=== PATIENT | female | born 1975 | race Caucasian/White ===

== ENCOUNTER → 2017-02-27 | Outpatient (CLI) | payer OTHER ==
[2015-06-25 12:50] VITALS: BP 154/99
[~2017-02-27] MED LIST: DIFLUCAN200 M1 PO; ERGOCALCIFER50000 IU PO; FLEXERIL 1010 MG/TAB PO; GOOD NEIGHBOR200 M1 PO; NORCO 325 MG-7.1 TA1 PO; ZANTAC150 M1 PO
== END ==
LOC: LAB 14:27 → RAD 14:27
DX: R05 Cough (principal)

== ENCOUNTER → 2017-02-27 | Outpatient (REF) ==
[2015-06-25 12:50] VITALS: BP 154/99
== END ==
LOC: LAB 14:32
DX: Z00.00 Encounter for general adult medical examination without abnormal findings (principal)

== ENCOUNTER → 2017-10-31 | Outpatient (CLI) | payer OTHER ==
[2015-06-25 12:50] VITALS: BP 154/99
== END ==
LOC: RAD 10-30 08:30 → MAMMO 08:08 → RAD 08:30
DX: Z12.31 Encounter for screening mammogram for malignant neoplasm of breast (principal)

== ENCOUNTER → 2018-07-25 | Outpatient (CLI) | payer OTHER ==
[2015-06-25 12:50] VITALS: BP 154/99
== END ==
LOC: RAD 16:52
DX: R93.5 Abnormal findings on diagnostic imaging of other abdominal regions, including retroperitoneum (principal); R10.32 Left lower quadrant pain

== ENCOUNTER → 2018-10-24 | Outpatient (REF) | payer OTHER ==
[2015-06-25 12:50] VITALS: BP 154/99
== END ==
LOC: LAB 16:29
DX: Z00.00 Encounter for general adult medical examination without abnormal findings (principal); E55.9 Vitamin D deficiency, unspecified; K90.89 Other intestinal malabsorption

== ENCOUNTER → 2019-11-19 | Outpatient (CLI) | payer OTHER ==
[2015-06-25 12:50] VITALS: BP 154/99
== END ==
LOC: MAMMO 08:17
DX: Z12.31 Encounter for screening mammogram for malignant neoplasm of breast (principal)

== ENCOUNTER 2020-09-10 09:36 | Emergency (ER) | payer OTHER ==
[2020-09-10 10:25] LABS: HEMATOCRIT 44.2 % (37.0-47.0); HEMOGLOBIN 14.9 g/dL (12.5-16.0); MEAN CELL VOLUME 88 fl (78-100); MEAN CORPUSCULAR HEMOGLOBIN 30 pg (27-31); MEAN CORPUSCULAR HGB CONC 34 g/dL (33-37); MEAN PLATELET VOLUME 11.4 fl (7.4-10.4); MONO # 0.6 (0.20-0.80); NEU # 4.2 (1.40-6.50); PLATELET COUNT 138 K/mm3 (130-400); RED CELL DISTRIBUTION WIDTH 13.6 % (11.5-14.5); WHITE BLOOD COUNT 5.8 K/mm3 (4.8-10.8)
[2020-09-10 10:38] LABS: ALBUMIN 3.9 g/dL (3.5-5.0); POTASSIUM 3.7 mmol/L (3.5-5.1); SODIUM 137 mmol/L (136-145)
[2020-09-10 10:40] LABS: CALCIUM 8.7 mg/dL (8.3-10.5)
[2020-09-10 10:41] LABS: GLUCOSE 104 mg/dL (65-105); TOTAL PROTEIN 7.3 g/dL (6.4-8.3)
[2020-09-10 10:42] LABS: CARBON DIOXIDE 25 mmol/L (22-29)
[2020-09-10 10:43] LABS: TOTAL BILIRUBIN 0.4 mg/dL (0.2-1.2)
[2020-09-10 10:44] LABS: ALCOHOL IN-HOUSE < 10 mg/dL (<10)
[2020-09-10 10:46] LABS: AST-SGOT 35 U/L (5-34)
[2020-09-10 10:47] LABS: ALT/SGPT 45 U/L (0-55)
[2020-09-10 10:56] LABS: D-DIMER 0.77 mg/L FEU (0.15-0.50)
[2020-09-10 11:45] LABS: ERYTHROCYTE SEDIMENTATION RATE 31 mm/hr (0-20)
[2020-09-10 12:04] LABS: URINE APPEARANCE HAZY; URINE BILIRUBIN NEGATIVE (NEGATIVE); URINE BLOOD TRACE (NEGATIVE); URINE COLOR LT YELLOW; URINE GLUCOSE NEGATIVE (NEGATIVE); URINE KETONE NEGATIVE (NEGATIVE); URINE LEUKOCYTE ESTERASE 1+ (NEGATIVE); URINE NITRATE NEGATIVE (NEGATIVE); URINE PROTEIN(semi-quant) TRACE mg/dL (NEGATIVE); URINE UROBILINOGEN NORMAL (NORMAL)
[2020-09-10] MEDS ORDERED: MACROBID 100 M100 MG PO (12:54)
[2020-09-10] MEDS ORDERED: TESSALON PERLE100 M1 PO (12:54)
[2020-09-10 13:35] VITALS: BP 130/87
== END 2020-09-10 13:32 | disposition home or self-care (01) ==
LOC: ED 09:36
PROVIDERS: Physician Assistant
DX: U07.1 COVID-19 (principal); N39.0 Urinary tract infection, site not specified; R55 Syncope and collapse
CPT/HCPCS: J7030; Q9967

== ENCOUNTER 2020-09-14 07:20 | Emergency (ER) | payer OTHER ==
[~2020-09-14] VITALS: Wt 102.2 kg
[~2020-09-14 07:20] MED LIST changes: +MACROBID 100 M100 MG PO; +TESSALON PERLE100 M1 PO
[2020-09-14 08:22] LABS: HEMATOCRIT 42.3 % (37.0-47.0); HEMOGLOBIN 14.1 g/dL (12.5-16.0); LYMPH# 1.2 (1.50-4.00); MEAN CELL VOLUME 87 fl (78-100); MEAN CORPUSCULAR HEMOGLOBIN 29 pg (27-31); MEAN CORPUSCULAR HGB CONC 33 g/dL (33-37); MEAN PLATELET VOLUME 11.3 fl (7.4-10.4); MONO # 0.6 (0.20-0.80); NEU # 5.6 (1.40-6.50); PLATELET COUNT 139 K/mm3 (130-400); RED BLOOD COUNT 4.88 M/mm3 (4.10-5.30); RED CELL DISTRIBUTION WIDTH 13.1 % (11.5-14.5); WHITE BLOOD COUNT 7.4 K/mm3 (4.8-10.8)
[2020-09-14 08:30] LABS: ALBUMIN 3.6 g/dL (3.5-5.0); POTASSIUM 3.1 mmol/L (3.5-5.1); SODIUM 137 mmol/L (136-145)
[2020-09-14 08:31] LABS: CALCIUM 8.4 mg/dL (8.3-10.5)
[2020-09-14 08:32] LABS: GLUCOSE 101 mg/dL (65-105)
[2020-09-14 08:34] LABS: CARBON DIOXIDE 26 mmol/L (22-29); TOTAL BILIRUBIN 0.6 mg/dL (0.2-1.2)
[2020-09-14 08:38] LABS: AST-SGOT 119 U/L (5-34)
[2020-09-14 08:39] LABS: ALT/SGPT 129 U/L (0-55); D-DIMER 0.9 mg/L FEU (0.15-0.50)
[2020-09-14 08:41] LABS: TROPONIN-I < 0.03 ng/mL (<0.030)
[2020-09-14 09:30] LABS: ERYTHROCYTE SEDIMENTATION RATE 63 mm/hr (0-20)
[2020-09-14 10:34] LABS: PH-URINE 5.5 (5.0 - 8.0); URINE APPEARANCE HAZY; URINE BILIRUBIN NEGATIVE (NEGATIVE); URINE BLOOD 250 ery/uL (NEGATIVE); URINE COLOR YELLOW; URINE GLUCOSE NEGATIVE (NEGATIVE); URINE KETONE SMALL (NEGATIVE); URINE LEUKOCYTE ESTERASE NEGATIVE (NEGATIVE); URINE MUCUS PRESENT (NOT PRESENT); URINE NITRATE NEGATIVE (NEGATIVE); URINE PROTEIN(semi-quant) TRACE mg/dL (NEGATIVE); URINE UROBILINOGEN NORMAL (NORMAL)
[2020-09-14] MEDS ORDERED: VITAMIN D310 MC1 (10:48)
[2020-09-14 12:30] VITALS: BP 102/62
== END 2020-09-14 13:19 | disposition short-term general hospital (02) ==
LOC: ED 07:20
PROVIDERS: Physician Assistant
DX: U07.1 COVID-19 (principal); R55 Syncope and collapse; Z32.02 Encounter for pregnancy test, result negative; Z79.2 Long term (current) use of antibiotics; Z79.899 Other long term (current) drug therapy
CPT/HCPCS: J7030

== ENCOUNTER → 2020-10-23 | Outpatient (CLI) | payer OTHER ==
[~2020-10-23] MED LIST changes: +VITAMIN D310 MC1
[2020-10-23 13:04] LABS: BASO # 0.1 (0.02-0.10); EOS # 0.2 (0.04-0.40); EOS % 2.7 % (1.0-5.0); LYMPH# 1.9 (1.50-4.00); MEAN CELL VOLUME 89 fl (78-100); MEAN CORPUSCULAR HEMOGLOBIN 29 pg (27-31); MEAN CORPUSCULAR HGB CONC 33 g/dL (33-37); MEAN PLATELET VOLUME 10.6 fl (7.4-10.4); MONO # 0.8 (0.20-0.80); NEU # 4.2 (1.40-6.50); PLATELET COUNT 247 K/mm3 (130-400); RED BLOOD COUNT 4.85 M/mm3 (4.10-5.30); WHITE BLOOD COUNT 7.2 K/mm3 (4.8-10.8)
[2020-10-23 13:14] LABS: ALBUMIN 3.8 g/dL (3.5-5.0)
[2020-10-23 13:15] LABS: CALCIUM 9.1 mg/dL (8.3-10.5)
[2020-10-23 13:17] LABS: TOTAL PROTEIN 6.4 g/dL (6.4-8.3)
[2020-10-23 13:18] LABS: TOTAL BILIRUBIN 0.5 mg/dL (0.2-1.2)
[2020-10-23 14:15] LABS: ERYTHROCYTE SEDIMENTATION RATE 24 mm/hr (0-20)
== END ==
LOC: LAB 12:32
PROVIDERS: Nurse Practitioner
DX: R60.0 Localized edema (principal)

== ENCOUNTER → 2020-10-27 | Outpatient (CLI) | payer OTHER | LOC: LAB 17:02 | DX: R50.9 Fever, unspecified (principal) ==

== ENCOUNTER → 2020-11-22 | Outpatient (REF) | LOC: LAB 08:48 | DX: Z00.00 Encounter for general adult medical examination without abnormal findings (principal) ==

== ENCOUNTER → 2020-11-22 | Outpatient (CLI) | payer OTHER | LOC: MAMMO 08:45 | DX: Z12.31 Encounter for screening mammogram for malignant neoplasm of breast (principal) ==

== ENCOUNTER 2021-05-09 08:31 | Emergency (ER) | payer OTHER ==
[2021-05-09 09:32] LABS: BASO # 0.06 (0.02-0.10); EOS # 0.12 (0.04-0.40); EOS % 1.8 % (1.0-5.0); HEMATOCRIT 48.9 % (37.0-47.0); HEMOGLOBIN 15.9 g/dL (12.5-16.0); LYMPH# 1.37 (1.50-4.00); MEAN CELL VOLUME 91 fl (78-100); MEAN CORPUSCULAR HEMOGLOBIN 29 pg (27-31); MEAN CORPUSCULAR HGB CONC 33 g/dL (33-37); MEAN PLATELET VOLUME 10.6 fl (7.4-10.4); MONO # 0.38 (0.20-0.80); NEU # 4.77 (1.40-6.50); PLATELET COUNT 253 K/mm3 (130-400); RED CELL DISTRIBUTION WIDTH 13.1 % (11.5-14.5); WHITE BLOOD COUNT 6.7 K/mm3 (4.8-10.8)
[2021-05-09 09:39] LABS: URINE APPEARANCE CLEAR; URINE BILIRUBIN NEGATIVE (NEGATIVE); URINE BLOOD NEGATIVE (NEGATIVE); URINE COLOR YELLOW; URINE GLUCOSE NEGATIVE (NEGATIVE); URINE KETONE NEGATIVE (NEGATIVE); URINE LEUKOCYTE ESTERASE NEGATIVE (NEGATIVE); URINE MUCUS PRESENT (NOT PRESENT); URINE NITRATE NEGATIVE (NEGATIVE); URINE PROTEIN(semi-quant) NEGATIVE (NEGATIVE); URINE UROBILINOGEN NORMAL (NORMAL)
[2021-05-09 09:40] LABS: ALBUMIN 4.3 g/dL (3.5-5.0)
[2021-05-09 09:41] LABS: POTASSIUM 4.3 mmol/L (3.5-5.1)
[2021-05-09 09:42] LABS: CALCIUM 10.3 mg/dL (8.3-10.5)
[2021-05-09 09:43] LABS: TOTAL PROTEIN 8.1 g/dL (6.4-8.3)
[2021-05-09 09:45] LABS: TOTAL BILIRUBIN 0.5 mg/dL (0.2-1.2)
[2021-05-09 11:46] VITALS: BP 116/80
== END 2021-05-09 11:46 | disposition home or self-care (01) ==
LOC: ED 08:31
PROVIDERS: Nurse Practitioner
DX: R10.31 Right lower quadrant pain (principal); E66.9 Obesity, unspecified; J45.909 Unspecified asthma, uncomplicated; Z86.16 Personal history of COVID-19; Z87.442 Personal history of urinary calculi
CPT/HCPCS: Q9967

== ENCOUNTER → 2021-05-20 | Outpatient (CLI) | payer OTHER | LOC: CARDREHAB 05-13 14:45 | DX: G47.33 Obstructive sleep apnea (adult) (pediatric) (principal); G47.8 Other sleep disorders | CPT/HCPCS: G0399 ==

== ENCOUNTER → 2021-09-22 | Outpatient (CLI) | payer OTHER | LOC: RAD 10:57 | DX: M25.561 Pain in right knee (principal) ==

== ENCOUNTER → 2021-12-13 | Outpatient (CLI) | payer OTHER | LOC: MAMMO 09:15 | DX: Z12.31 Encounter for screening mammogram for malignant neoplasm of breast (principal) ==

== ENCOUNTER → 2022-10-03 | Outpatient (CLI) | payer OTHER | LOC: RAD 09:56 | DX: I50.20 Unspecified systolic (congestive) heart failure (principal); I51.89 Other ill-defined heart diseases; I34.0 Nonrheumatic mitral (valve) insufficiency; I37.1 Nonrheumatic pulmonary valve insufficiency ==

== ENCOUNTER → 2022-10-07 | Outpatient (CLI) | payer OTHER ==
[2022-10-07 11:58] LABS: CLUE CELLS NOT OBSERVED (Not Observd)
== END ==
LOC: LAB 11:13
PROVIDERS: Nurse Practitioner
DX: R10.2 Pelvic and perineal pain (principal)
CPT/HCPCS: Q0111

== ENCOUNTER → 2022-11-23 | Outpatient (CLI) | payer OTHER ==
[~2022-11-23] MED LIST changes: +BACTRIM DS TAB1 EACH PO; +CEFDINIR300 MG PO; +DIFLUCAN150 M1 PO; +THERAFLU SEVER PO
== END ==
LOC: RAD 09:19
DX: R05.9 Cough, unspecified (principal)

== ENCOUNTER → 2022-12-27 | Outpatient (CLI) | payer OTHER | LOC: MAMMO 10:27 | DX: Z12.31 Encounter for screening mammogram for malignant neoplasm of breast (principal) ==

== ENCOUNTER → 2024-01-01 | Outpatient (CLI) | payer OTHER | LOC: MAMMO 14:30 | DX: Z12.31 Encounter for screening mammogram for malignant neoplasm of breast (principal) ==

== ENCOUNTER → 2024-05-05 | Outpatient (CLI) | payer OTHER | LOC: RAD 16:48 | DX: M79.642 Pain in left hand (principal); M79.641 Pain in right hand ==

== ENCOUNTER → 2024-09-01 | Day surgery (SDC) | payer OTHER ==
[~2024-09-01] MED LIST changes: +Lidocaine PF 2% (20 MG/ML) 2 ML VIAL ONE
== END ==
LOC: MSO 09:38
DX: Z12.11 Encounter for screening for malignant neoplasm of colon (principal); K21.9 Gastro-esophageal reflux disease without esophagitis; K44.9 Diaphragmatic hernia without obstruction or gangrene; K57.30 Diverticulosis of large intestine without perforation or abscess without bleeding; G47.33 Obstructive sleep apnea (adult) (pediatric); E66.9 Obesity, unspecified; Z79.899 Other long term (current) drug therapy; Z68.41 Body mass index [BMI] 40.0-44.9, adult
CPT/HCPCS: 00813; J2704; J7120

== ENCOUNTER → 2024-11-26 | Outpatient (CLI) | payer OTHER ==
[~2024-11-26] MED LIST changes: -Lidocaine PF 2% (20 MG/ML) 2 ML VIAL ONE
[2024-11-26 14:59] LABS: BASO # 0.04 K/mm3 (0.02-0.10); EOS # 0.19 K/mm3 (0.04-0.40); EOS % 2.5 % (1.0-5.0); HEMATOCRIT 41.9 % (37.0-47.0); HEMOGLOBIN 13.6 g/dL (12.5-16.0); LYMPH# 1.93 K/mm3 (1.50-4.00); MEAN CELL VOLUME 90 fl (78-100); MEAN CORPUSCULAR HEMOGLOBIN 29 pg (27-31); MEAN CORPUSCULAR HGB CONC 33 g/dL (33-37); MEAN PLATELET VOLUME 10.9 fl (7.4-10.4); MONO # 0.66 K/mm3 (0.20-0.80); NEU # 4.68 K/mm3 (1.40-6.50); PLATELET COUNT 236 K/mm3 (130-400); RED BLOOD COUNT 4.68 M/mm3 (4.10-5.30); WHITE BLOOD COUNT 7.5 K/mm3 (4.8-10.8)
[2024-11-26 15:02] LABS: CALCIUM 9.2 mg/dL (8.3-10.5)
[2024-11-26 15:03] LABS: TOTAL PROTEIN 7.2 g/dL (6.4-8.3)
[2024-11-26 15:05] LABS: TOTAL BILIRUBIN 0.2 mg/dL (0.2-1.2)
[2024-11-26 15:11] LABS: MAGNESIUM 1.89 mg/dL (1.60-2.60)
[2024-11-26 22:44] LABS: FOLATE (FOLIC ACID) 13.5 ng/mL (2.0-20.0)
== END ==
LOC: LAB 14:32
PROVIDERS: Internal Medicine
DX: I50.9 Heart failure, unspecified (principal); K90.9 Intestinal malabsorption, unspecified